=== PATIENT | male | born 1995 | race Caucasian/White ===

== ENCOUNTER 2022-05-14 11:49 | Emergency (ER) | payer OTHER ==
[~2022-05-14] VITALS: Ht 180.3 cm; Wt 61.7 kg
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
--- NOTE | 2022-05-14 11:55 | NUR ---
AT BED SIDE
[2022-05-14] MEDS ORDERED: CYCLOBENZAPRINE 10 MG TABLET PO ONE (12:30)
[2022-05-14] MEDS ORDERED: KETOROLAC TROMETHAMINE INJ 30 MG/ML VIAL IM ONE (12:30)
--- NOTE | 2022-05-14 12:30 | NUR ---
X-RAY TECH AT [facility]
[2022-05-14] MEDS ORDERED: KETOROLAC TROMETHAMINE INJ 30 MG/ML VIAL ONE (12:32)
[2022-05-14] MEDS ORDERED: CYCLOBENZAPRINE 10 MG TABLET ONE (12:34)
[2022-05-14] MEDS ORDERED: CYCL5TAB PO (13:35)
[2022-05-14] MEDS ORDERED: IBUP-1957 PO (13:35)
--- NOTE | 2022-05-14 13:43 | NUR ---
IV removed. Catheter intact and site benign. Pressure and 4x4 applied to site. No bleeding noted.Patient discharged to home in stable condition. Written and verbal after care instructions given. Patient verbalizes understanding of instruction.
[2022-05-14 13:44] VITALS: BP 132/69
== END 2022-05-14 13:45 | disposition home or self-care (01) ==
LOC: ER 11:53
DX: S53.402A Unspecified sprain of left elbow, initial encounter (principal); S00.01XA Abrasion of scalp, initial encounter; S09.90XA Unspecified injury of head, initial encounter; F17.200 Nicotine dependence, unspecified, uncomplicated; W19.XXXA Unspecified fall, initial encounter; Y93.89 Activity, other specified; Y92.89 Other specified places as the place of occurrence of the external cause; Y99.8 Other external cause status
CPT/HCPCS: 99284; 72125; 96372; 73080; 70450; J1885